=== PATIENT | male | born 1965 | race Caucasian/White ===

== ENCOUNTER 2018-02-26 15:47 | Emergency (ER) | payer OTHER ==
[~2018-02-26] VITALS: Ht 182.9 cm; Wt 93.9 kg
== END 2018-02-26 20:34 | disposition home or self-care (01) ==
LOC: ER 15:47
DX: R07.89 Other chest pain (principal)

== ENCOUNTER 2018-05-14 13:38 | Inpatient (IN) | payer OTHER ==
[~2018-05-14] VITALS: Wt 6.0 kg
--- NOTE | 2018-05-14 14:04 | NUR ---
PTE REFIER QUE LE DUELE TODO EL CUERPO DESDE HACE 3
[2018-05-14] MEDS ORDERED: CYCLOBENZAPRINE10 MG PO (17:05)
[2018-05-14] MEDS ORDERED: NAPR500T14 PO (17:05)
--- NOTE | 2018-05-14 17:37 | NUR ---
PT ALERTA Y ORIENTAOD X3 ESFERAS SE LE ORINETA SOBRE TX Y REFIERE ENTEDER. SE MIKE MUESTRAS DE ABIGAIL CON TECNICAS ASPETICAS. SE ADMINISTRAN MEDICAMENTOS ORDEANDOS. PT TOL[place] TX. PENDIENTE TORADOR 60MG IM, ESPERANDO LOS RESULTADOS DE LA CREATINA.
--- NOTE | 2018-05-14 23:27 | NUR ---
SE RECIBE PACIENTE ALERTA Y ORIENTADO X3 ACOMPANADO POR FAMILIAR EN AMEENA CON BARANDAS ELEVADAS Y CABEZERA 30 GRADOS, AREA DE VENOPUNCION PATENTE Y NISH DE EDEMA BAJANDO 0.9NSS 1000ML RUN 150ML/HR. PACIENTE NIEGA PALPITACIONES O DISNEA SE MANTIENE BAJO OBSERVACION.
--- NOTE | 2018-05-15 07:28 | NUR ---
SE RECIBE PTE MASCULINO EN EL AREA DE OBSERVACION EN AMEENA CON BARANDAS ELEVADA Y TIMBRE ACCESIBLE PTE ALERTA Y CONCIENTE POR 3, NO PRESENTA DOLOR AL MOMENTO SE OBSERVA VENOPUNCION PATENTE Y NISH DE EDEMA, PTE EN ESPERA DE LA MEGHNA SMITH, SE MANTIENE EN OBSERVACION Y BAJO TRATAMIENTO.
[2018-05-15] MEDS ORDERED: MOTRIN IB200 MG (08:37)
== END 2018-05-18 18:30 | disposition home or self-care (01) | DRG 558 ==
LOC: ER 13:38 → SEC-K 05-15 10:53 → MEDI 05-15 10:53
PROVIDERS: ADMIT Internal Medicine
DX: M62.82 Rhabdomyolysis (principal); R07.89 Other chest pain